=== PATIENT | female | born 1945 | race Caucasian/White ===

== ENCOUNTER 2023-03-25 08:57 | Day surgery (SDC) | payer MEDICARE, OTHER, SELFPAY ==
[2023-03-17 12:30] VITALS: BMI 36.3
[2023-03-25] VITALS (16 sets, daily range): BP systolic 94–150; BP diastolic 44–88; PULSE 44–91; RESP 12–19; TEMP 36.2–36.6; O2SAT 96–100; BMI 36.3
--- NOTE | 2023-03-25 06:00 | DI.RAD.S_ITS ---
PROCEDURE: XR KNEE RT 1TO2V INDICATIONS: tka TECHNIQUE: 2 view(s) of the knee acquired. COMPARISON: [facility] Sanjay Monsivais, ELLIE, XR KNEE ARTHRITIC SERIES BI, 01/18/2023, 15:01. FINDINGS: Bones: Patient is status post knee joint arthroplasty. Hardware components are in expected positions. Visualized bony structures are intact. Soft tissues: Overlying postoperative changes are noted. IMPRESSION: Expected appearance of the right total knee arthroplasty. Dictated by: Dima Gaspar M.D. on 03/25/2023 at 15:18 Approved by: Dima Gaspar M.D. on 03/25/2023 at 15:19
[2023-03-25] MEDS: LACTATED RINGERS 1,000 ML 42 ML IV (09:49)
[2023-03-25] MEDS: ACETAMINOPHEN 325 MG TABLET 975 MG PO (09:53)
[2023-03-25] MEDS: PREGABALIN 75 MG CAPSULE PO (09:54)
[2023-03-25] MEDS: CELECOXIB 200 MG CAPSULE PO (09:54)
--- NOTE | 2023-03-25 10:46 | PM.PREOP ---
Pre-operative Note Interval Note History & Physical reviewed/Exam performed by Physician: Yes Changes to H&P: No
[2023-03-25] MEDS: CEFAZOLIN 2 GM/100 ML PREMIX 100 ML IV ×2 (11:05→18:03)
[2023-03-25] MEDS: BUPIVACAINE LIPOSOME 266 MG/20 ML VIAL INJ (11:31)
[2023-03-25] MEDS: BUPIVACAINE 0.5% W/ EPI (PF) 30 ML VIAL INJ (11:33)
--- NOTE | 2023-03-25 11:44 | SUR.OPER ---
Supine on padded OR bed. Pillow under head, arms secured on padded armboards <90 degree abduction. Safety belt across torso. Non-operative leg secured with tape over blanket over lower leg. Operative leg secured in [place] positioner. Foam padded brace at thigh of operative leg.
--- NOTE | 2023-03-25 14:11 | PM.OP.1 ---
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 She is failed extensive conservative treatment with oral medications, physical therapy braces anti-inflammatories and injections. She is been indicated for total knee arthroplasty. The risks and benefits of the procedure have been discussed with the patient and given the opportunity to ask questions. The risks of surgery include but are not limited to infection, malunion, nonunion, persistence of pain, damage to nerves and blood vessels, posttraumatic arthritis, DVT, PE, cardiopulmonary complications and . The patient expressed a thorough understanding of the risks and benefits of surgery and has elected to proceed. Consent was signed. Surgeon: Mignon Mina Forest Ecologist: Summer Lafleur Anesthesia Type: General, Spinal and Local Operative Notes Findings: Tricompartmental varus knee arthritis full-thickness cartilage loss. Large posterior medial osteophytes Closure Type: primary Specimen(s): none sent Prosthetic devices, grafts, tissues, transplants, or devices: Kohli and nephew journey2 BCS Femur cobalt chromium size 6 Tibia size 5 right Poly 9 mm Patella 32 x 7.5 round Estimated Blood Loss (mL): 100 Blood products transfused: none Tourniquet time (min): 92 Procedure in detail: During the operation, the services of a physician director medical surgical were medically indicated and necessary to provide the exposure of the operative site for the surgical procedure and to maintain the limb in a proper position to carry out the operation safely and efficiently. Without a qualified it administrative assistant being present this would extended the operative procedure and made the procedure technically more difficult to perform. Patient was seen in the preoperative area where the patient and site of surgery were identified in the operative knee was marked informed consent confirmed. This was the right knee. Patient received the appropriate preoperative antibiotics this was 2 g of Ancef. And other preoperative medications and was taken to the operating room placed on operating table in the supine position. Spinal anesthetic were administered. The operative extremity was then prepped and draped in the standard sterile fashion with a nonsterile tourniquet high on the thigh. Patient was placed on the green foam bolsters. A lateral post was placed at the level of the proximal thigh /trochanter area as a lateral post. Formal time-out procedure was performed confirming the patient's side and site of surgery and administration of appropriate preoperative antibiotics and implants were in the room accounted for. All were in agreement. Patient received a preoperative dose of tranexamic acid and then a 2nd dose at tourniquet release Patient has significant limitations in flexion preoperatively range of motion 0 to 80? of flexion. There was noted large posteromedial osteophyte. Patient was prepped and draped in the standard sterile fashion and the foot was placed into the Wilder leg stewart. This was taken into high flexion and the incision was marked out over the anterior knee to the level of the medial tubercle tubercle. The Esmarch was then used for exsanguination and the tourniquet was inflated to 250 mmHg. Was made through the skin and subcutaneous tissue in high flexion this was then brought down into 30? of flexion for the medial parapatellar arthrotomy. A marker pen was used to giovanni the arthrotomy site for later repair. Joint fluid was evacuated. The anterior osteophytes and soft tissues were removed. Routine medial release was initially made along the medial proximal tibia with Bovie. The patella was 1st cut using the saw sized and prepped and then subluxed throughout the case and protected. The leg was then taken into extension and the patella was everted and the patella was cut to accommodate the patellar button. This was sized to a 32 mm button for a 7.5 mm thickness to recreate the original dimensions of the patella. Poly was removed and the protector replaced and the patella was subluxed and the knee was taken back up into flexion and attention was returned to the femur. Then the rotational landmarks of Whitesides line and the trans epicondylar axis were marked on the femur with electrocautery. Then the intramedullary guide for the femur was created. The distal femoral cut was made in 6? of valgus using the intramedullary guide with the cut setting on 0+ as the patient did not have a preoperative flexion contracture. The ACL and PCL released. The proximal tibia was then cut using the intramedullary guide, taking 9 mm off the less involved side this was the lateral plateau. The Levi wing was used to check the slope through the guide. The extension and flexion blocks were tried. This was good in extension with a 9 mm block but was quite tight in flexion. Two more mm were taken off the tibia. And this allowed the 9 mm block to fit well. femur was then sized and the rotation set using the posterior condyle referencing 3? of external rotation. This measured a size 6 additionally we shifted this 1 mm anterior for another mm opening along the posterior condyles due to the flexion tightness. Cut block was then placed and the anterior, posterior and chamfer cuts were then made. The posterior osteophytes and soft tissues were then removed. Of note there was a very large posterior medial osteophyte that was removed with the cut block cuts. Then in extension the posterior capsule was injected with a mixture of 40 mL of 0.25% Marcaine and 20 mL of Exparel care to avoid excessive injection posterior laterally. The remainder of this was saved for the capsule and subcutaneous tissue and placed during cement curing. Attention was then returned to the tibia and this was prepared with the rotation set by the extramedullary guide. Lined up with the tibial crest and the 2nd toe. The tibial trial was then pinned in place and the trial femoral components were placed. Then the intercondylar notch was cut through the femoral trial to create the box this was done with the distal than the proximal drill and then the box cut distally and then proximally. Next the insert was placed and the trial poly placed. This was stable in flexion and extension and there was a 0-120 degree range of motion, Limited by body habitus The tibia was then finished with the drill and flange cuts and then this was removed. All trials were removed. The wound and bone was irrigated with pulsatile lavage. This was then dried with a sponge. The components were verified and opened and the cement was mixed. Cement was applied to the components and then to the bone then the tibia was cemented in place 1st followed by the femur then the patella. Excess cement was removed. With care looking around the back of the knee. Remainder of the injection was injected around the capsule. trial poly was placed back in the leg was placed into extension for the patellar cementing. After this was cured approximately 15 minutes later and the dilute Betadine solution was placed for at least 3 minutes in the wound this was then irrigated out and the final poly was placed. This was a 9 mm poly. The tourniquet was released hemostasis was achieved. Final 1g of tranexamic acid was given IV at the time of tourniquet release. The capsule was closed with 1. Ethibond suture. Subcutaneous layer was closed with 3-0 Vicryl suture. Skin was closed with a running V lock suture Stratafix Monocryl type suture and Dermabond. An devaughn dressing was placed. An Edward wrap was applied. Anesthetic was terminated the patient was awoken from anesthesia and taken to recovery room in good condition. There no immediate complications from this procedure. The patient will be maintained on a standard total knee replacement protocol with weight-bearing as tolerated. Complications: none Post-operative Condition: stable Disposition: PACU Plan for aftercare: Weightbear as tolerated. Start vatvi-az-[id number] exercises immediately. Aspirin 81 mg b.i.d. for DVT prophylaxis. Follow-up in 2 weeks.
[2023-03-25] MEDS: KETOROLAC 30 MG/ML VIAL 15 MG IV ×2 (15:19→21:15)
[2023-03-25] MEDS: LACTATED RINGERS 1,000 ML 100 ML IV ×2 (15:19→21:28)
[2023-03-25] MEDS: ACETAMINOPHEN 325 MG TABLET 650 MG PO ×2 (15:20→21:15)
--- NOTE | 2023-03-25 15:30 | PT-IP ANOTE ---
Visited with patient and . Patient still numb in BLE's, able to minimally move LE's against gravity. Obtained history/prior level of function. Instructed patient to begin ankle pumps and heel slides every hour while awake as soon as numbness wears off, and to avoid placing pillow/blanket under R knee. Will plan to eval in AM. will be back at 11 AM for any caregiver training necessary.
--- NOTE | 2023-03-25 16:09 | PC.NURSE ---
Day shift: Pt admitted to floor from PACU at 1500. Pt reports no pain and spinal block still in effect - pt reports not being unable to wiggle toes and has numbness in BLE. Bradycardic down to 41. Notified MD Mina. She ordered 500mL LR bolus x 1. Pt denies nausea. Tolerated general diet for dinner. By 1700, pt's HR up to 57. Pt reports having feeling in BLEs and is now able to move both feet. Dressing on R knee is CDI. Will continue to monitor.
[2023-03-25] MEDS: LACTATED RINGERS 500 ML 1000 ML IV (16:16)
[2023-03-25] MEDS: OXYCODONE IR 5 MG TABLET PO (18:02)
[2023-03-25] MEDS: ATORVASTATIN 20 MG TABLET 40 MG PO (21:14)
[2023-03-25] MEDS: ASPIRIN EC 81 MG TABLET PO (21:14)
[2023-03-25] MEDS: OXYCODONE IR 10 MG TABLET PO (21:14)
[2023-03-25] MEDS: DOCUSATE 100 MG CAPSULE PO (21:15)
[2023-03-26] VITALS: BP 152/54; PULSE 56; RESP 18; TEMP 36.4; O2SAT 98
[2023-03-26] MEDS: OXYCODONE IR 10 MG TABLET PO ×3 (01:11→08:55)
[2023-03-26] MEDS: CEFAZOLIN 2 GM/100 ML PREMIX 100 ML IV (02:23)
[2023-03-26 03:06] VITALS: BP 137/56; PULSE 65; RESP 18; TEMP 36.1; O2SAT 99
[2023-03-26] MEDS: KETOROLAC 30 MG/ML VIAL 15 MG IV (06:18)
[2023-03-26 08:00] VITALS: BP 109/71; PULSE 73; RESP 18; TEMP 36.7; O2SAT 94
--- NOTE | 2023-03-26 08:44 | P.DS_ITS ---
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 She is failed extensive conservative treatment with oral medications, physical therapy braces anti- inflammatories and injections.? She is been indicated for total knee arthroplasty.? The risks and benefits of the procedure have been discussed with the patient and given the opportunity to ask questions.? The risks of surgery include but are not limited to infection, malunion, nonunion, persistence of pain, damage to nerves and blood vessels, posttraumatic arthritis, DVT, PE, cardiopulmonary complications and .? The patient expressed a thorough understanding of the risks and benefits of surgery and has elected to proceed.? Consent was signed. Surgeon: Mignon Mina Licensed Investment Sales Assistant: Summer Lafleur Anesthesia Type: General, Spinal and Local Operative Notes Findings: Tricompartmental varus knee arthritis full-thickness cartilage loss.? Large posterior medial osteophytes Closure Type: primary Specimen(s): none sent Prosthetic devices, grafts, tissues, transplants, or devices: Kohli and nephew journey2 BCS Femur cobalt chromium size 6 Tibia size 5 right Poly 9 mm Patella 32 x 7.5 round Estimated Blood Loss (mL): 100 Blood products transfused: none Tourniquet time (min): 92 Discharge Providers Provider Discharge Date: 03/26/23 Consults: 03/25/23 14:41 Consult to Discharge Planning Routine Comment: Consult to Occupational Therapy Evaluate & Treat Comment: Physician Instructions: Evaluate and treat Consult to Physical Therapy Evaluate & Treat Comment: Physician Instructions: postop TKA protocol Discharge provider: Summer Lafleur PA-C Summary Hospital Course Discharge Diagnosis: Right knee osteoarthritis, s/p right total knee arthroplasty Hospital Course: Ms Ríos's hospital course was remarkable for a 'rough night' after surgery. She had difficulty w/ pain control and difficulty sleeping for a variety of reasons. Despite this, on the morning of POD# 1, she wanted to go home. Her was scheduled for caregiver training w/ PT at 1100. She was eating and voiding without difficulty. Exam Vital Signs (past 8 hours): - 03/26/23 03:06 Temperature 97 F L Pulse Rate 65 Respiratory Rate 18 Blood Pressure 137/56 L Pulse Oximetry 99 Oxygen Flow Rate 0 Oxygen Delivery Method Room Air Oxygen Flow Rate 0 Narrative Exam Narrative: 5/5 strength in hip flexors, quadriceps, hamstrings, DF, PF, EHL on right. Sensation to light touch intact throughout RLE. Calf soft, compressible, nontender and without palpable cords or masses. BHUMI dressing functioning and with scant bloody drainage. PFSH Medical History (Updated 03/17/23 @ 13:11 by Tatum Wiley RN) History of CVA (cerebrovascular accident) (11/2022) HLD (hyperlipidemia) YUHAAVIATAM (hard of hearing) HTN (hypertension) Surgical History (Updated 03/17/23 @ 13:10 by Tatum Wiley RN) History of hysterectomy History of total left hip replacement (~2012) Hx of appendectomy Hx of tonsillectomy S/P removal of thyroid nodule (2019) Social History household members: spouse Smoking Status: Never smoker alcohol intake: current Discharge Assessment & Plan Assessment and Plan Assessment: Right knee osteoarthritis, s/p right total knee arthroplasty Plan of Treatment: Discharge home after PT, multimodal pain control, outpt PT, f/u in office in 2 weeks as scheduled. Discharge Plan Discharge Plan Patient Disposition: Home Discharge orders & Medications Discharge Orders: Discharge (Order); Ordered 03/26/23 Ordered By: Summer Lafleur Prescriptions: New oxycodone 5 mg tablet 5 mg PO Q4H PRN (Reason: pain) Qty: 40 0RF Rx Instructions: Postop exempt-may take 1-2 tabs every 4 hours as needed for pain ondansetron 4 mg tablet,disintegrating 4 mg PO Q8H PRN (Reason: nausea and vomiting) Qty: 5 1RF docusate sodium [Colace] 100 mg capsule 100 mg PO BID Qty: 30 0RF aspirin 81 mg tablet,delayed release (DR/EC) 81 mg PO BID Qty: 60 0RF Continued atorvastatin 40 mg Tablet 40 mg PO BEDTIME acetaminophen 500 mg Tablet 1,000 mg PO BID-TID PRN (Reason: Pain) lisinopril 10 mg Tablet 10 mg PO DAILY hydrochlorothiazide 25 mg Tablet 25 mg PO DAILY oxycodone 5 mg Tablet 5 mg PO QAM aspirin 81 mg Capsule 81 mg PO DAILY Follow up/Referrals: Mignon Mina MD [Physician] - Diet/Activity/Treatments Diet: Diet as Tolerated Activity: wbat Other treatments: Medications: -Aspirin 81mg twice daily x6 weeks to prevent blood clots. -OTC Tylenol 500 mg 1 tablet every 4 hours as needed for pain/fever. Max 6 tablets per day. (take scheduled every 4-6 hours for the first few days to week after schedule to help stay on top of your pain) -Ibuprofen 400 mg 1 tablet every 4 hours as needed for pain/inflammation. Max 2,400 mg per day. (take scheduled for the first few days-week after surgery to stay on top of your pain) -Oxycodone 5 mg take 1-2 tablets (5-10mg) every 4 hours as needed for moderate- severe pain (narcotic pain medication). (maximum dose for very severe pain would be 3 pills (15mg) every 3 hours) -Vistaril (hydroxyine) 25mg 1 tab every 4 hours as needed for spasms/pain/nausea. -ondansetron 4mg - 1 tab every 8 hours as needed for nausea -As needed medications: -Ducolax and /or MiraLax as needed for constipation from narcotic pain medications. -Pepcid AC as needed for stomach upset (usually from aspirin or ibuprofen). Dressing/Wound care: -Remove the Edward wrap 48 hours after surgery. -Keep bhumi dressing in place until postoperative follow-up office visit. The bhumi dressing the white dressing that is attached to a battery pack. This will work for 7 days. At that time the batteries will stop working and the unit will turn off. At that time, you can cut the hose off and the rest of the white bandage will remain just like any normal bandage. -Okay to shower. Keep wound out of direct water stream. No soaking or submerging until all the scabs fall off (approximately 4-6 weeks). -No lotions, ointments, or scar creams directly to the incision until the wound is healed (4-6 weeks), -Please call the office if dressing becomes wet, soiled, or saturated. Activities: -Weight-bearing as tolerated. Use front wheeled walker, and progress to cane when safe. -Continue with home exercises as directed by your physical therapist. (work on getting your leg. knee fully straight and bending knee as well- motion after knee replacement is very important) -should have outpatient Physical Therapy visits set up to start within 1 week after surgery -Elevate ?toes above the nose if you have significant swelling in your lower leg. (A wedge pillow is easiest.) -Ice your incision as needed for pain/inflammation/swelling. Protect your skin with a folded pillowcase. -Incentive Spirometer (breathing device from [facility]): 5-10xs every hour while awake for the first 1-2 weeks. Follow-up: -Follow-up with your surgeon or PA in the office in 10-14 days after surgery. -Follow-up with your surgeon 6 weeks postoperatively. Contact the office if you have any of the following: ? Painful swelling or numbness ? Unrelenting pain ? Fever (over 101?- it is normal to have a low grade fever for the first day or two following surgery) or chills ? Redness around the incisions ? Color changes ? Continuous bleeding or drainage from the incision (a small amount is expected) ? Excessive nausea or vomiting ? Difficulty breathing If you have an emergency that requires immediate attention such as shortness of breath or chest pain, call 911 or proceed to the nearest emergency room. [facility]: [phone] Pain Medications: It is the policy of [facility] that narcotic medications will only be refilled during office hours. Additionally, due to the alarming rate of narcotic pain medication abuse/dependence, it has become necessary for physician practices to closely manage patient use of prescription narcotic pain relievers, such as Vicodin ([place]), Percocet, and Oxycodone products. Narcotic pain management in the postoperative period may not exceed 6 weeks. If narcotic pain management is required beyond 90 days, then a referral to a Chronic Pain Specialist will be made. If a request for a medication prescription of refill has been made, the physician must review your chart prior to authorizing the request. Please be patient with office staff. If you call during patient hours, your call may not be returned until the end of the day. Skin/Wound/Dressing Care Report to your healthcare provider any signs of infection, such as:: chills, fever, night sweats, increased pain, unusual drainage and unusual redness Visit Report/Discharge Packet Instructions: DI for Knee Replacement Stand Alone Forms: Patient Portal/API, Surgery Discharge Discharge Data Attending Provider: Mignon Mina VTE Deep Vein Thrombosis/Pulmonary Embolism Present on Admission: No
[2023-03-26] MEDS: hydroCHLOROthiazide 25 MG TABLET PO (08:54)
[2023-03-26] MEDS: ACETAMINOPHEN 325 MG TABLET 650 MG PO (08:55)
[2023-03-26] MEDS: ASPIRIN EC 81 MG TABLET PO (08:56)
[2023-03-26] MEDS: polyethylene glycoL 3350 17 GM POWD.PACK PO (08:56)
[2023-03-26] MEDS: DOCUSATE 100 MG CAPSULE PO (08:56)
--- NOTE | 2023-03-26 10:05 | PT.IIE ---
Current Diagnoses Unilateral primary osteoarthritis, right knee (03/25/23) Surgery Performed Operation Date: 03/25/23 11:15 Actual Procedures p Total Knee Arthroplasty(Right) - Mignon Mina MD Surgical History (Last Updated 03/17/23 @ 13:10 by Tatum Wiley RN) History of hysterectomy History of total left hip replacement (~2012) Hx of appendectomy Hx of tonsillectomy S/P removal of thyroid nodule (2019) Medical History (Last Updated 03/17/23 @ 13:11 by Tatum Wiley RN) History of CVA (cerebrovascular accident) (11/2022) HLD (hyperlipidemia) [place] (hard of hearing) HTN (hypertension) Physical Therapy Inpatient Evaluation/Re-Eval M1 PT/OT-IP Prior Functional Status Start: 03/25/23 15:28 Freq: NEEDED Status: Active Protocol: Document 03/26/23 10:05 AB (Rec: 03/26/23 13:[email or web address] Medical Review Prior Functional Status Medical History Reviewed Yes Communication Able to make needs known Mobility and Gait pt stated that she is independent with all mobilities and ambulation without AD Social History Household Members spouse Living Arrangements Apartment/Condo Number of Floors (Floors) One Floor Number of Stairs To Enter/Railing? has an elevator to get to her floor no steps to enter Home Environment Standard Height Toilet,Tub/ Shower Doors,Elevator Home Equipment Front Wheel Walker,Raised Toilet Seat w/Armrests,Grab Bars In Shower M2 PT-IP Current Condition Start: 03/25/23 15:28 Freq: NEEDED Status: Active Protocol: Document 03/26/23 10:05 AB (Rec: 03/26/23 13:01 AB [email or web address]) Physical Therapy Current Condition Current Condition Evaluation Date 03/26/23 Treatment Diagnosis s/p R TKA; difficulty in walking Onset Date 03/25/23 M3 PT-IP Subjective Start: 03/25/23 15:28 Freq: NEEDED Status: Active Protocol: Document 03/26/23 10:05 AB (Rec: 03/26/23 13:01 AB [email or web address]) Subjective Physical Therapy Visit Type Type Initial Evaluation Visit Start Time 10:05 Visit Stop Time 11:00 Total Visit Minutes 55 Number of MACHINE STAMPER Visits 0 Physical Therapy Visit Comments Patient Comments agreeable to do PT Therapy Pain Assessment Pain When Pain Assessed At Rest Pain Present Pain Present Pain Reported Location Right Knee Intensity 7 Scale Used Numeric (0 - 10) Pain Management Techniques Distraction,Modification of Treatment,Re-positioning, Timing of Activity with Medications M4 PT-IP Mobility and Gait Start: 03/25/23 15:28 Freq: NEEDED Status: Active Protocol: Document 03/26/23 10:05 AB (Rec: 03/26/23 13:01 AB [id number]) PT-Bed Mobility Assessment Supine to Sit Supine to Sit Minimal Assistance,Maximum Assistance Sit to Supine Sit to Supine Standby Assistance PT-Transfer Assessment Sit to and From Stand Sit to and from Stand Minimal Assistance,Moderate Assistance,Maximum Assistance, 1 Person Assistance,Use of Upper Extremities Equipment Transfer Assistive Device Gait Belt,Front Wheeled Walker Orthotic/Prosthetic Devices or Brace: No Transfers Transfer Destination Chair Transfer Technique ambulated Transfer Ability Level of Assist Contact Guard Assistance,1 Person Assistance,Use of Upper Extremities Comments Mobility Comments pt supine in bed. completed heels slides prior to mobility . post-op folder provided and discussed contents. pt completed supine to sit max A and max cues. pt with posterior trunk LOB requiring max A for sitting balance on EOB with initial sitting but requiring min A after repositioning. pt with memory issues and with difficulty following directions. completed sit to stand mod A to max and max cues. pt sat back down requiring max A for controlled descent. pt tends to plop backwards. educated on sit<>stand techniques and completed sit to stand from EOB min to mod A and max cues. ambulated in room ~ 30 ft using FWW CGA and sat on EOB. demonstrated sit to supine SBA and supine to sit min A and cues. sit to stand from EOB min A and ambulated to the chair using FWW ~ 12 ft CGA. instructed to do sit<>stand from the chair and requiring mod A and max cues. Has no carryover from education provided for sit to stand. educated again and repeated sit to stand min A to mod A and max cues. pt continues to have uncotrolled descent requiring mod to max A for safety. pt agreed to sit on the chair. positioned on the chair. call light and table placed within reach. caregiver training set up at 1pm. Gait Assessment Gait Gait Assistance Required: Contact Guard Assist Distance (Feet) 30 Able to Maintain Weight Bearing Status Yes During Gait Assistive Devices Assistive Device Gait Belt,Front Wheeled Walker Orthotic/Prosthetic Devices or Brace: No Gait Deviations General Gait Pattern Antalgic,Decreased Stride Length,Decreased Feet Clearance Factors Limiting Gait Function Factors Limiting Gait Function Decreased Activity Tolerance, Decreased Strength,Difficulty Following Directions,Limited Range of Motion,Pain,Poor Balance,Poor Safety Awareness PT-Balance Assessment Sitting Balance and Reactions Static Sitting Balance Ability Fair Dynamic Sitting Balance Ability Poor Standing Balance and Reactions Static Standing Balance Ability Fair Dynamic Standing Balance Ability Poor Device Used FWW M5 PT-IP Objective Assessments Start: 03/25/23 15:28 Freq: NEEDED Status: Active Protocol: Document 03/26/23 10:05 AB (Rec: 03/26/23 13:01 AB [email or web address]) Orientation Orientation/Cognition Level of Alertness Alert Orientation Name,Place,Situation Language Function Ability Hard of Hearing Safety Awareness Decreased Safety Awareness Memory Description Short Term Impaired Gross Range of Motion Lower Extremity ROM Assessment Right Impaired Impairments R knee flexion: ~ 50 deg R knee flexion: ~ 25 deg less to 0 Strength Lower Extremity Strength Assessment Left Impaired Hip 4-/5 Knee 4-/5 Muscle Tone Muscle Tone WNL Yes M6 PT-IP Treatment Start: 03/25/23 15:28 Freq: NEEDED Status: Active Protocol: Document 03/26/23 10:05 AB (Rec: 03/26/23 13:01 AB [email or web address]) Physical Therapy Treatment Exercises Exercises Heel Slides Education Education Provided Precautions,Weight Bearing Status,Post-Op Packet,Safety M7 PT-IP Assessment and Plan Start: 03/25/23 15:28 Freq: NEEDED Status: Active Protocol: Document 03/26/23 10:05 AB (Rec: 03/26/23 13:01 [email or web address]) PT Summary Assessment and Plan Potential Rehabilitation Potential Fair Status of Condition at Evaluation Evolving Summary Impairments Pain,ROM,Strength,Balance, Coordination,Sensation,Tone, Cognition,Bed Mobility, Transfers,Gait,Activity Tolerance Assessment Summary pt s/p R TKA POD 1. pt requiring min to max A for sit <>stand and max cues needed for safety. pt presents with memory issues affecting carryover of techniques and safety. pt able to ambulate CGA using FWW CGA. Caregiver training set up for this afternoon at 1pm. will continue to assess progress. Goals Bed Mobility Goal Independent Transfer Goal Independent,Front Wheeled Walker Gait Goal Independent,Front Wheel Walker Gait Distance 200 Days to Meet Goals 5 Frequency of Treatment Frequency Of Treatment Twice a Day Treatment Plan Physical Therapy Treatment Plan Bed Mobility Training,Transfer Training,Gait Training, Therapeutic Exercise,Balance Retraining,Post Op Education, Discharge Planning,Hot or Cold Pack,Neuromuscular Re-ed, Coordination Retraining,Manual Therapy Other Recommendations and Next Treatment caregiver training 03/26/23 @ [facility] 1pm Weight Bearing Status Weight Bearing Status Weight Bear as Tolerated Allowed Weight Bearing Amount (enter % RLE WBAT or #) (%) Recommendations To Nursing Amount of Assist Needed 1 Person Assist Discharge Recommendations PT Discharge Recommendations Home with 18/04 Assist Available,Outpatient PT Transportation Needs at Discharge Private Vehicle
--- NOTE | 2023-03-26 11:33 | CM.DANOTE ---
Initial DCP Assessment Note Pt is a 78 yo female, resident of [place], now POD#1 from Rt knee surgery PCP: Dr Garcia, [facility] Payer: [facility] Reviewed chart, pt discussed in multidisciplinary rounds this morning. PT attempted to see patient yesterday and she was still numb in her BLE. Therapy seeing this morning Met w/patient briefly. Patient moving slowly but eager to return home. Patient has planned to return home w/heidy spouse to assist, outpatient follow up No barriers identified at this time to patient's safe discharge home w/family to assist, however, still awaiting input from PT [place] this morning CM team following closely in case any DC needs or concern arise SERGIO Schafer Discharge Planning/Care Management CM Discharge Assessment Start: 03/26/23 11:27 Freq: Status: Active Protocol: Document 03/26/23 11:27 RODNEY (Rec: 03/26/23 11:31 RODNEY [id number]) Discharge Planning Assessment Assigned Wood Scaler SERGIO Rodriguez DPOA/Assigned Designee Name Srinath Ríos, spouse Contact Information [phone] Advance Directives? Yes Advance Directives on File No History Provided By Patient,Medical Record Prior Living Arrangements Apartment/Condo Household Members spouse Type of transporation used prior to Drives own vehicle admit Independent with ADL's Yes Is patient alert and oriented? Yes Barriers to Discharge No Discharge Plan Home Transportation Arrangement Spouse Referrals Initiated None needed
[2023-03-26 12:00] VITALS: BP 134/59; PULSE 64; RESP 18; TEMP 36.1; O2SAT 98
[2023-03-26] MEDS: OXYCODONE IR 5 MG TABLET PO (12:42)
--- NOTE | 2023-03-26 13:00 | PT.IPTN ---
Current Diagnoses Unilateral primary osteoarthritis, right knee (03/25/23) Surgery Performed Operation Date: 03/25/23 11:15 Actual Procedures p Total Knee Arthroplasty(Right) - Mignon Mina MD Physical Therapy Treatment Note M2 PT-IP Current Condition Start: 03/25/23 15:28 Freq: NEEDED Status: Active Protocol: Document 03/26/23 10:05 AB (Rec: 03/26/23 13:01 AB [id number]) Physical Therapy Current Condition Current Condition Evaluation Date 03/26/23 Treatment Diagnosis s/p R TKA; difficulty in walking Onset Date 03/25/23 M3 PT-IP Subjective Start: 03/25/23 15:28 Freq: NEEDED Status: Active Protocol: Document 03/26/23 13:00 AB (Rec: 03/26/23 14:19 AB [email or web address]) Subjective Physical Therapy Visit Type Type Treatment Note Visit Start Time 13:00 Visit Stop Time 13:45 Total Visit Minutes 45 Number of DOBBY LOOM WEAVER Visits 0 Physical Therapy Visit Comments Patient Comments agreeable to do PT Therapy Pain Assessment Pain When Pain Assessed At Rest Pain Present Pain Present Pain Reported Location Right Knee Intensity 8 Scale Used Numeric (0 - 10) Pain Management Techniques Distraction,Modification of Treatment,Re-positioning, Timing of Activity with Medications M4 PT-IP Mobility and Gait Start: 03/25/23 15:28 Freq: NEEDED Status: Active Protocol: Document 03/26/23 13:00 AB (Rec: 03/26/23 14:19 AB [email or web address]) PT-Bed Mobility Assessment Supine to Sit Supine to Sit Maximum Assistance Sit to Supine Sit to Supine Standby Assistance PT-Transfer Assessment Sit to and From Stand Sit to and from Stand Moderate Assistance,1 Person Assistance,Use of Upper Extremities Equipment Transfer Assistive Device Gait Belt,Front Wheeled Walker Orthotic/Prosthetic Devices or Brace: No Transfers Transfer Destination Bed,Chair Transfer Technique ambulated Transfer Ability Level of Assist Moderate Assistance,1 Person Assistance,Use of Upper Extremities Comments Mobility Comments pt supine in bed. spouse in room for caregiver training. educated spouse on how to assist pt with bed mobility. pt completed supine to sit max A and max cues with increase posterior trunk lean. educated spouse on how to use safety belt and how to assist pt. pt attempted to put safety belt on pt x 3 with initial max cues on first 2 attempts and able to complete without cues on last attempt. spouse assisted pt with sit to stand from EOB. educated on how to assist and cue pt when needed. pt repeated sit< >stand with spouse assisting and cueing. spouse assisted pt with ambulation in room using FWW and sat on the chair . pt completed sit <>stand from the chair with spouse assisting with occasional reminders to spouse on cueing pt. pt ambulated to EOB using FWW with spouse assisting. pt completed sit<>supine with spouse assisting. pt ambulated back to chair using FWW with spouse assisting. positioned pt on the chair. call light and table placed within reach. pt and spouse without further concerns. pt has a transport w/c to use at home. Gait Assessment Gait Gait Assistance Required: Contact Guard Assist,Minimum Assistance Distance (Feet) 15 Able to Maintain Weight Bearing Status Yes During Gait Assistive Devices Assistive Device Gait Belt,Front Wheeled Walker Orthotic/Prosthetic Devices or Brace: No Gait Deviations General Gait Pattern Antalgic,Decreased Stride Length,Decreased Feet Clearance,Step-to Gait Factors Limiting Gait Function Factors Limiting Gait Function Decreased Activity Tolerance, Decreased Strength,Difficulty Following Directions,Limited Range of Motion,Pain,Poor Balance,Poor Safety Awareness M5 PT-IP Objective Assessments Start: 03/25/23 15:28 Freq: NEEDED Status: Active Protocol: Document 03/26/23 10:05 AB (Rec: 03/26/23 13:01 AB [email or web address]) Orientation Orientation/Cognition Level of Alertness Alert Orientation Name,Place,Situation Language Function Ability Hard of Hearing Safety Awareness Decreased Safety Awareness Memory Description Short Term Impaired Gross Range of Motion Lower Extremity ROM Assessment Right Impaired Impairments R knee flexion: ~ 50 deg R knee flexion: ~ 25 deg less to 0 Strength Lower Extremity Strength Assessment Left Impaired Hip 4-/5 Knee 4-/5 Muscle Tone Muscle Tone WNL Yes M6 PT-IP Treatment Start: 03/25/23 15:28 Freq: NEEDED Status: Active Protocol: Document 03/26/23 13:00 AB (Rec: 03/26/23 14:19 AB [email or web address]) Physical Therapy Treatment Education Education Provided Safety M7 PT-IP Assessment and Plan Start: 03/25/23 15:28 Freq: NEEDED Status: Active Protocol: Document 03/26/23 13:00 AB (Rec: 03/26/23 14:19 AB [email or web address]) PT Summary Assessment and Plan Potential Rehabilitation Potential Fair Summary Impairments Pain,ROM,Strength,Balance, Coordination,Sensation,Tone, Cognition,Bed Mobility, Transfers,Gait,Activity Tolerance Progress Towards Goals Slow Progress - Other Assessment Summary caregiver training conducted and spouse able to assist pt. pt plans to go home today and is set up for outpt PT. pt may go home when medically stable. Goals Bed Mobility Goal Independent Transfer Goal Independent,Front Wheeled Walker Gait Goal Independent,Front Wheel Walker Gait Distance 200 Days to Meet Goals 5 Frequency of Treatment Frequency Of Treatment Twice a Day Treatment Plan Physical Therapy Treatment Plan Bed Mobility Training,Transfer Training,Gait Training, Therapeutic Exercise,Balance Retraining,Post Op Education, Discharge Planning,Hot or Cold Pack,Neuromuscular Re-ed, Coordination Retraining,Manual Therapy Weight Bearing Status Weight Bearing Status Weight Bear as Tolerated Allowed Weight Bearing Amount (enter % RLE WBAT or #) (%) Recommendations To Nursing Amount of Assist Needed 1 Person Assist Discharge Recommendations PT Discharge Recommendations Home with 18/04 Assist Available,Outpatient PT Transportation Needs at Discharge Private Vehicle
[2023-03-26 13:40] VITALS: BP 134/59; PULSE 64; RESP 18; TEMP 36.1; O2SAT 99
--- NOTE | 2023-03-26 15:12 | PC.NURSE ---
Day shift: Discharge instructions gone over with patient and patient's spouse. All questions answered and patient stated understanding. Pain adequately managed with 5 mg oxycodone. Edward wrap + devaughn on R knee remain in place and are CDI. PIV d/c'ed prior to discharge. Pt escorted via wheelchair to exit with [employer] Jeannie.
== END 2023-03-26 14:00 | disposition home or self-care (01) ==
LOC: OR 09:01 → AC 09:02
PROVIDERS: Referring Provider Orthopaedic Surgery Foot and Ankle Surgery; Visit Provider Orthopaedic Surgery Foot and Ankle Surgery
PROC: 0SRC0JZ Replacement of Right Knee Joint with Synthetic Substitute, Open Approach (ICD-10-PCS; CPT 27447; principal; 2023-03-25 11:15)
DX: M17.11 Unilateral primary osteoarthritis, right knee (principal)
CPT/HCPCS: 27447; 73560; 97162; 97530; C1776; C9290; J0690; J1885; J2405; J2704; J3010

== ENCOUNTER 2024-01-04 09:28 | Day surgery (SDC) | payer MEDICARE, OTHER, SELFPAY ==
[2023-03-25 14:44] VITALS: BMI 36.3
[2023-12-21 13:47] VITALS: BMI 35.5
[2024-01-04] VITALS (15 sets, daily range): BP systolic 109–179; BP diastolic 47–91; PULSE 55–106; RESP 12–17; TEMP 36.2–36.8; O2SAT 59–99; BMI 35.5
--- NOTE | 2024-01-04 06:00 | DI.RAD.S_ITS ---
PROCEDURE: XR KNEE LT 1TO2V INDICATIONS: postop TKA TECHNIQUE: 2 view(s) of the knee acquired. COMPARISON: [facility], CR, XR KNEE RT 1TO2V, 03/25/2023, 13:51. [facility], CR, XR KNEE 4+ VIEWS LEFT, 11/25/2023, 10:22. FINDINGS: Bones: Patient is status post knee joint arthroplasty. Hardware components are in expected positions. Visualized bony structures are intact. Soft tissues: Overlying postoperative changes are noted. IMPRESSION: Expected post-operative appearance of a knee arthroplasty. Dictated by: Andry Tony M.D. on 01/04/2024 at 15:48 Approved by: Andry Tony M.D. on 01/04/2024 at 15:48
[2024-01-04] MEDS: CELECOXIB 200 MG CAPSULE PO (10:11)
[2024-01-04] MEDS: ACETAMINOPHEN 325 MG TABLET 975 MG PO (10:11)
[2024-01-04] MEDS: PREGABALIN 75 MG CAPSULE PO (10:12)
[2024-01-04] MEDS: LACTATED RINGERS 1,000 ML 42 ML IV (10:30)
--- NOTE | 2024-01-04 10:47 | PM.PREOP ---
Pre-operative Note Interval Note History & Physical reviewed/Exam performed by Physician: Yes Changes to H&P: No
--- NOTE | 2024-01-04 10:47 | PM.OP.1 ---
Operative Date/Time/Diagnoses Date of procedure: 01/04/24 Time of procedure: 11:30 Pre-op diagnosis: Left knee arthritis Post-op diagnosis: same Procedure & Clinicians Procedure: Total knee replacement left CPT code 50147 Robotic assisted surgery CPT code S 2900 Imageless guidance computer navigation CPT code 68711 Same procedure as scheduled: Yes Indications: The patient has significant pain associated with osteoarthritis of the left knee. It is associated with morning stiffness. Pain interferes with daily normal function including ambulation standing and any activities that are weight-bearing. It interferes with sleep. There is crepitation with range of motion. There is marked joint line tenderness. X-rays show significant levels of osteoarthritis, varus. Thorough attempted previous conservative treatment have been rendered. The patient has failed exercise program, medications and previous injections. Patient is indicated for total knee arthroplasty. The risks and benefits of the procedure have been discussed with the patient and given the opportunity to ask questions. The risks of surgery include but are not limited to infection, malunion, nonunion, persistence of pain, damage to nerves and blood vessels, posttraumatic arthritis, DVT, PE, cardiopulmonary complications and . The patient expressed a thorough understanding of the risks and benefits of surgery and has elected to proceed. Consent was signed. During the operation, the services of a physician surgical aide were medically indicated and necessary to provide the exposure of the operative site for the surgical procedure and to maintain the limb in a proper position to carry out the operation safely and efficiently. Without a qualified contact lens assistant being present this would extended the operative procedure and made the procedure technically more difficult to perform. Surgeon: Mignon Mina Identification Printing Machine Setter: Paulo Guido Anesthesia Type: General, Spinal, Peripheral nerve block and Local Operative Notes Findings: Tricompartmental varus knee arthritis left knee large osteophytes, full-thickness cartilage loss all 3 compartments. Degenerative meniscal tearing. Closure Type: primary Specimen(s): none sent Prosthetic devices, grafts, tissues, transplants, or devices: Kohli and nephew journey 2 BCS Femur cobalt chromium size 7 Left tibia left size 5 Polyethylene 9 mm BCS Kalli 2 patella 32 by 7.5 round Estimated Blood Loss (mL): 50 Blood products transfused: none Tourniquet time (min): 105 Procedure in detail: Patient was seen in the preoperative area where the patient and site of surgery were identified in the operative knee was marked informed consent confirmed. This was the left knee. Patient received the appropriate preoperative antibiotics this was 2 g of Ancef. And other preoperative medications and was taken to the operating room placed on operating table in the supine position. Spinal anesthetic were administered. The operative extremity was then prepped and draped in the standard sterile fashion with a nonsterile tourniquet high on the thigh. Patient was placed on the green foam bolsters. A lateral post was placed at the level of the proximal thigh /trochanter area as a lateral post. Formal time-out procedure was performed confirming the patient's side and site of surgery and administration of appropriate preoperative antibiotics and implants were in the room accounted for. All were in agreement. Patient received a preoperative dose of tranexamic acid and then a 2nd dose at tourniquet release Patient was prepped and draped in the standard sterile fashion and the foot was placed into the leg stewart. This was taken into high flexion and the incision was marked out over the anterior knee to the level of the medial tubercle tubercle. The Esmarch was then used for exsanguination and the tourniquet was inflated to 250 mmHg. Incision Was made through the skin and subcutaneous tissue in high flexion this was then brought down into 30? of flexion for the medial parapatellar arthrotomy. A marker pen was used to giovanni the arthrotomy site for later repair. Joint fluid was evacuated. The anterior osteophytes and soft tissues were removed. Routine medial release was initially made along the medial proximal tibia with Bovie. The patella was 1st cut using the saw sized and prepped and then subluxed throughout the case and protected. The leg was then taken into extension and the patella was everted and the patella was cut to accommodate the patellar button. This was sized to a 32 mm button for a 7.5 mm thickness to recreate the original dimensions of the patella. Poly was removed and the protector replaced and the patella was subluxed and the knee was taken back up into flexion and attention was returned to the femur. Then the rotational landmarks of [place] line and the trans epicondylar axis were marked on the femur with electrocautery. ACL and PCL were released. Bony spurs were removed. Then the Cori robotic pins were placed into the femur and tibia and the race set up. Landmarks were established and the robotic planning was commenced. Plan was developed and improved and adjusted as necessary to create a balanced knee. Initial alignment was 3? of varus. Plan was correct to 0-1 degree of varus. The pin was taken an improved. 4? of external rotation was put into the distal femur. And the cuts were adjusted to balance 1-2 mm in flexion and extension. Provisional implant sizes were size 7 femur and 5 tibia balancing was provisionally done with a 10 mm poly. Once the Plan was satisfactory, the bur was used to remove the distal femur, then the 5 in 1 cutting block was applied complete the femur cuts. Attention was then turned to the tibia and the tibial resection was made in accordance with the robotic planning. Planer was placed again on the tibia to double check the cut and these were all within 1 degree or 1 mm. The trials were placed. And the femoral notch was cut a standard fashion using Reamer then slap hammer. The knee was trialed and the checked. Knee was balanced in flexion extension. Range of motion 0-135 degrees was obtained. The achieve alignment with the trials stated 1-2 degree of valgus. This was with the trial using a 9 mm poly. The knee was clinically stable at extension 30 and 90? of flexion.The rotation femoral trial was marked Bovie on the bone and checked with a long arun. The tibia was then finished with a drill and flange cut and then The trial implants were removed. Then in extension the posterior capsule was injected with a mixture of 40 mL of 0.25% Marcaine and 20 mL of Exparel care to avoid excessive injection posterior laterally. The remainder of this was saved for the capsule and subcutaneous tissue and placed during cement curing. The wound and bone was irrigated with pulsatile lavage. This was then dried with a sponge. The components were verified and opened and the cement was mixed. Cement was applied to the components and then to the bone then the tibia was cemented in place 1st followed by the femur then the patella. Excess cement was removed. With care looking around the back of the knee. Remainder of the injection was injected around the capsule. trial poly was placed back in the leg was placed into extension for the patellar cementing. After this was cured approximately 15 minutes later and the dilute Betadine solution was placed for at least 3 minutes in the wound this was then irrigated out and the final poly was placed. This was a 9 mm poly. The final alignment checked using the robotic trackers was made with a 0 degree, neutral alignment with the final cemented implants. The tourniquet was released hemostasis was achieved. Final 1g of tranexamic acid was given IV at the time of tourniquet release. The capsule was closed with 1. Ethibond suture. Followed by a running Quill stitch. Subcutaneous layer was closed with 3-0 Vicryl suture. Skin was closed with a running V lock suture Stratafix Monocryl type suture and Dermabond. An Aquacel dressing was placed . An Edward wrap was applied. Anesthetic was terminated the patient was woken from anesthesia and taken to recovery room in good condition. There no immediate complications from this procedure. The patient will be maintained on a standard total knee replacement protocol with weight-bearing as tolerated. Complications: none Post-operative Condition: stable Disposition: PACU Plan for aftercare: Routine total knee postoperative care. Weightbear as tolerated. Range of motion immediately. Discharge when medically stable. Aspirin 81 mg b.i.d. for 6 weeks for DVT prophylaxis. We will start outpatient physical therapy within 1 week. Follow up in 10-14 days if physician contact lens assistant. Follow up in 6 weeks with surgeon.
--- NOTE | 2024-01-04 10:59 | SUR.OPER ---
Supine on padded OR bed. Pillow under head, arms secured on padded armboards <90 degree abduction. Safety belt across torso. Non-operative leg secured with tape over blanket over lower leg. Operative leg secured in DeMayo/Wilton/Nathe positioner. Foam padded brace at thigh of operative leg.
[2024-01-04] MEDS: CEFAZOLIN 2 GM/100 ML PREMIX 100 ML IV ×2 (11:22→18:39)
--- NOTE | 2024-01-04 11:25 | SUR.PREOP ---
Block start time 1103. Monitoring initiated and maintained throughout procedure. Patient remained stable throughout procedure, no adverse reactions noted.
[2024-01-04] MEDS: BUPIVACAINE 0.25% (PF) 60 ML, EPINEPHrine 0.3 MG INJ (11:51)
[2024-01-04] MEDS: TRANEXAMIC ACID 1,000 MG VIAL 1000 MG INJ ×2 (11:51→13:18)
[2024-01-04] MEDS: BUPIVACAINE LIPOSOME 266 MG/20 ML VIAL INJ (11:52)
[2024-01-04] MEDS: CARBOXYMETHYLCELLULOSE DROPS 1 DROPS EYE-LEFT (14:45)
--- NOTE | 2024-01-04 15:10 | SUR.PHASEI ---
Eye Pain Patient had eye pain to left eye. Eye tearing on visual inspection. Dr. Rocha notified and inspected patient's eye. Refresh eye drops ordered and given as ordered. Patient verbalizes some relief but eyes still hurt and water. Patient noted that the pain was worse upon arrival to her brighter lit room in acute care.
[2024-01-04] MEDS: ACETAMINOPHEN 325 MG TABLET 650 MG PO ×2 (16:07→20:30)
[2024-01-04] MEDS: IBUPROFEN 400 MG TABLET PO ×2 (16:07→18:30)
[2024-01-04] MEDS: LACTATED RINGERS 1,000 ML 100 ML IV (16:07)
[2024-01-04] MEDS: OXYCODONE IR 5 MG TABLET PO (18:30)
[2024-01-04] MEDS: ATORVASTATIN 20 MG TABLET 40 MG PO (20:31)
[2024-01-04] MEDS: DOCUSATE 100 MG CAPSULE PO (20:31)
[2024-01-04] MEDS: ASPIRIN EC 81 MG TABLET PO (20:31)
[2024-01-05] MEDS: LACTATED RINGERS 1,000 ML 100 ML IV (02:31)
[2024-01-05] MEDS: CEFAZOLIN 2 GM/100 ML PREMIX 100 ML IV (02:32)
[2024-01-05] MEDS: OXYCODONE IR 5 MG TABLET PO ×4 (02:36→13:16)
[2024-01-05] MEDS: ACETAMINOPHEN 325 MG TABLET 650 MG PO (02:36)
[2024-01-05] MEDS: IBUPROFEN 400 MG TABLET PO ×2 (02:36)
[2024-01-05 05:59] LABS: Hematocrit 37.4 % (36-46); Hemoglobin 12.5 g/dL (12.0-16.0)
--- NOTE | 2024-01-05 07:40 | PM.PNPO.1 ---
Subjective Subjective Date Patient Seen: 01/05/24 Time Patient Seen: 07:41 Interval history: Patient is having moderate to severe pain. Patient denies fever chills. No nausea or vomiting. Her 's home to assist her. She states her knee is very stiff and surprised that this surgery has been so debilitating. Exam Vital Signs (past 8 hours): Oxygen Delivery Method Room Air Oxygen Flow Rate 0 Narrative Exam Narrative: 78-year-old female resting comfortably in bed in no apparent distress. Left knee dressing is clean, dry and intact. Motor functions intact distal left lower extremity. Sensation grossly intact to light touch left lower extremity. Left leg is warm and dry. Const General: cooperative and comfortable Nutritional Appearance: average body habitus Orientation: alert Resp Effort & Inspection: normal respiratory effort and able to speak in complete sentences Objective Labs 01/05/24 05:54 Labs: Laboratory Results - last 24 hr 01/05/24 05:54 Hgb 12.5 Hct 37.4 PFSH Medical History (Updated 12/21/23 @ 14:06 by Tatum Wiley RN) HLD (hyperlipidemia) HTN (hypertension) [place] (hard of hearing) History of CVA (cerebrovascular accident) (11/2022) Surgical History (Updated 12/21/23 @ 13:56 by Tatum Wiley RN) History of total right knee replacement (03/25/23) History of total left hip replacement (~2012) S/P removal of thyroid nodule (2019) History of hysterectomy Hx of tonsillectomy Hx of appendectomy Social History household members: spouse Smoking Status: Never smoker alcohol intake: current Assessment & Plan Post-op Postoperative Procedures: Procedures Operation Date: 01/04/24 10:45 Actual Procedure Side Surgeon p Total Knee Arthroplasty - Robot Left Mignon Mina MD Postoperative day: 1 Postoperative status: doing well and marginal pain control Postoperative plan: routine post-op care Postoperative plan narrative: Multimodal pain management Weight-bearing as tolerated, routine postop protocol total knee arthroplasty Aspirin 81 mg b.i.d. for 6 weeks Disposition likely home today or tomorrow Quality VTE Deep Vein Thrombosis/Pulmonary Embolism Present on Admission: No
[2024-01-05 08:00] VITALS: BP 168/86; PULSE 61; RESP 16; TEMP 36.3; O2SAT 99
[2024-01-05] MEDS: ASPIRIN EC 81 MG TABLET PO (08:47)
[2024-01-05 08:48] VITALS: BP 149/79
[2024-01-05] MEDS: lisinopriL 10 MG TABLET PO (08:48)
[2024-01-05] MEDS: DOCUSATE 100 MG CAPSULE PO (08:49)
[2024-01-05] MEDS: hydroCHLOROthiazide 25 MG TABLET PO (08:49)
--- NOTE | 2024-01-05 10:17 | PT.IIE ---
Current Diagnoses Unilateral primary osteoarthritis, left knee (01/04/24) Surgery Performed Operation Date: 01/04/24 10:45 Actual Procedures p Total Knee Arthroplasty - Robot(Left) - Mignon Mina MD Surgical History (Last Updated 12/21/23 @ 13:56 by Tatum Wiley, RN) History of hysterectomy History of total left hip replacement (~2012) History of total right knee replacement (03/25/23) Hx of appendectomy Hx of tonsillectomy S/P removal of thyroid nodule (2019) Medical History (Last Updated 12/21/23 @ 14:06 by Tatum Wiley, RN) History of CVA (cerebrovascular accident) (11/2022) HLD (hyperlipidemia) [place] (hard of [place]) HTN (hypertension) Physical Therapy Inpatient Evaluation/Re-Eval M1 PT/OT-IP Prior Functional Status Start: 01/05/24 09:25 Freq: NEEDED Status: Active Protocol: Document 01/05/24 09:25 MB (Rec: 01/05/24 10:16 MB [id number]) Medical Review Prior Functional Status Medical History Reviewed Yes Diet/Fluid Consistency Regular Communication Unsure basline communication, pt appears to have some confusion on evaluation and trouble following simple commands, she has hearing aides. OT to further assess cognition Mobility and Gait Pt reports no AD or cane use at baseline Activities of Daily Living and IADL's Pt states that she did not drive d/t LE issues THERAPY SITE COORDINATOR and that her did the driving Social History Household Members spouse Living Arrangements Apartment/Condo Number of Floors (Floors) One Floor Number of Stairs To Enter/Railing? Pt states there are no steps to enter Home Environment High Toilet,Tub/Shower Home Equipment Front Wheel Walker,Straight Cane,Raised Toilet Seat w/ Armrests,Grab Bars In Shower M2 PT-IP Current Condition Start: 01/05/24 09:25 Freq: NEEDED Status: Active Protocol: Document 01/05/24 09:25 MB (Rec: 01/05/24 10:16 MB [id number]) Physical Therapy Current Condition Current Condition Evaluation Date 01/05/24 Treatment Diagnosis L TKR M3 PT-IP Subjective Start: 01/05/24 09:25 Freq: NEEDED Status: Active Protocol: Document 01/05/24 09:25 MB (Rec: 01/05/24 10:16 MB [id number]) Subjective Physical Therapy Visit Type Type Initial Evaluation Visit Start Time 09:25 Visit Stop Time 10:00 Number of THERAPY SITE COORDINATOR Visits 0 Physical Therapy Visit Comments Patient Comments Pt is pleasant and smiling in bed and then she communicates concern that her left knee is not doing the same as the right one did after surgery and that she cannot move it and she is concerned about going home with . Pt is anxious about this throughout treatment and con't to make verbalizations about this. Therapy Pain Assessment Pain When Pain Assessed During Mobility Pain Present Pain Present Pain Reported Location Left knee Intensity 8 Scale Used Numeric (0 - 10) Description Acute Pain Behaviors Facial Grimacing,Guarding Pain Management Techniques Distraction,Elevation, Modification of Treatment,Re- positioning,Timing of Activity with Medications M4 PT-IP Mobility and Gait Start: 01/05/24 09:25 Freq: NEEDED Status: Active Protocol: Document 01/05/24 09:25 MB (Rec: 01/05/24 10:16 MB [id number]) PT-Bed Mobility Assessment Supine to Sit Supine to Sit Minimal Assistance,1 Person Assistance,Head of Bed Elevated,Bedrails Scooting Scooting to Edge of Bed Minimal Assistance PT-Transfer Assessment Sit to and From Stand Sit to and from Stand Moderate Assistance,Maximum Assistance,1 Person Assistance ,Use of Upper Extremities Equipment Transfer Assistive Device Gait Belt,Front Wheeled Walker Orthotic/Prosthetic Devices or Brace: No Transfers Transfer Destination Toilet Transfer Technique Ambulation Transfer Ability Level of Assist Moderate Assistance,Maximum Assistance,1 Person Assistance ,Use of Upper Extremities Comments Mobility Comments Pt is very anxious about moving left leg and PT places gait belt around her left foot to allow her to help scoot her left leg to the left out to EOB. HOB is up upon PT arrival and so she moves to EOB for upright hook lying position. Pt requires encouragement to move and then she is able to do most of the work. BP and HR in RUE are high. In hook lying sittin/83, 69 and sitting EOB: 209/74, 77. Mod A to stand up from the bed and max A to stand up from the toilet in BR , cues for hand placement, talking pt through each step of mobility. Gait Assessment Gait Gait Assistance Required: Minimum Assistance,Moderate Assistance Distance (Feet) 25 Able to Maintain Weight Bearing Status Yes During Gait Assistive Devices Assistive Device Gait Belt,Front Wheeled Walker Orthotic/Prosthetic Devices or Brace: No Gait Deviations General Gait Pattern Antalgic,Decreased Stride Length,Decreased Feet Clearance,Flexed Trunk,Step-to Gait,Wide Based Gait Factors Limiting Gait Function Factors Limiting Gait Function Decreased Activity Tolerance, Decreased Strength,Pain,Poor Balance,Poor Safety Awareness Comments Gait Comments Pt gait trains 25'x1 and 10'x1 with RW and usually min A but increased mod A initially after getting up from commode. Pt requires cues for step-to gait and she has decreased left ankle DF with gait and step-length and foot clearance , flexed posture at hips. PT-Balance Assessment Sitting Balance and Reactions Static Sitting Balance Ability Good Dynamic Sitting Balance Ability Fair Standing Balance and Reactions Static Standing Balance Ability Fair Dynamic Standing Balance Ability Poor Device Used RW M5 PT-IP Objective Assessments Start: 01/05/24 09:25 Freq: NEEDED Status: Active Protocol: Document 01/05/24 09:25 MB (Rec: 01/05/24 10:16 MB [id number]) Orientation Orientation/Cognition Level of Alertness Confusional State Orientation Name,Age,Birthday,Month,Place, Situation Language Function Ability Hard of Hearing Safety Awareness Decreased Safety Awareness Comments Pt appears to have some cognitive challenges with PT today and has trouble following commands and seems surprised about simple functional tasks that PT asks her to perform. Gross Range of Motion Upper Extremity ROM Impairments Defer to OT Lower Extremity ROM Assessment Left Impaired Strength Lower Extremity Strength Assessment Left Impaired Comments Strength Comments MMT LLE deferred and she has weakness all LLE joints Sensation Assessment Comments Sensation Comments Edema LLE M6 PT-IP Treatment Start: 01/05/24 09:25 Freq: NEEDED Status: Active Protocol: Document 01/05/24 09:25 MB (Rec: 01/05/24 10:16 MB [id number]) Physical Therapy Treatment Exercises Exercises Ankle Pumps,Heel Slides Knee ROM Measurement Grossly 5-25 actively left knee post-op Education Education Provided Weight Bearing Status,Post-Op Packet,Safety M7 PT-IP Assessment and Plan Start: 01/05/24 09:25 Freq: NEEDED Status: Active Protocol: Document 01/05/24 09:25 MB (Rec: 01/05/24 10:16 MB [id number]) PT Summary Assessment and Plan Potential Rehabilitation Potential Fair Status of Condition at Evaluation Evolving Summary Impairments Pain,ROM,Strength,Balance, Coordination,Cognition,Bed Mobility,Transfers,Gait, Activity Tolerance Progress Towards Goals Slow Progress due to Pain Assessment Summary Pt is a 78 y/o female presenting with reports of high pain 05/05 and concerns about decreased left knee function post-op. Pt requires encouragement to participate with all mobility tasks and ongoing cueing to stay on task and perform simple functional tasks. She is [place] and this may be a component to command- following challenges but she also has trouble describing past events such as stroke event in 2022 and understanding simple functional activities. High pain, high BP, decreased left knee range and strength and cognitive challenges were present during PT eval this a. m. Asked pt to ask her to come in for some family training this afternoon to see if they can manage together. Goals Bed Mobility Goal Standby Assistance Transfer Goal Standby Assistance,Front Wheeled Walker Gait Goal Standby Assistance,Front Wheel Walker Gait Distance 75 Days to Meet Goals 5 Frequency of Treatment Frequency Of Treatment Twice a Day Treatment Plan Physical Therapy Treatment Plan Bed Mobility Training,Transfer Training,Gait Training, Therapeutic Exercise,Balance Retraining,Post Op Education, Discharge Planning,Hot or Cold Pack,Neuromuscular Re-ed, Coordination Retraining,Manual Therapy Weight Bearing Status Weight Bearing Status Weight Bear as Tolerated Recommendations To Nursing Amount of Assist Needed 2 Person Assist Discharge Recommendations PT Discharge Recommendations Home vs SNF Transportation Needs at Discharge Private Vehicle,Wheelchair/ Cabulance
--- NOTE | 2024-01-05 10:20 | OT.IP.EVAL ---
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 (Rec: 01/05/24 11:40 [facility] [id number]) Medical Review Prior Functional Status Medical History Reviewed Yes Diet/Fluid Consistency Regular Communication Unsure baseline communication, pt appears to have some confusion on evaluation and trouble following simple commands, she has hearing aides. 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 Pt states there are no steps to enter Home Environment High Toilet,Tub/Shower Home Equipment Front Wheel Walker,Straight Cane,Raised Toilet Seat w/ Armrests,Grab Bars In Shower M2 OT-IP Current Condition Start: 01/05/24 11:13 Freq: Status: Active Protocol: Document 01/05/24 11:14 [facility] (Rec: 01/05/24 11:40 [facility] [id number]) Occupational Therapy Current Condition Current Condition Evaluation Date 01/05/24 Treatment Diagnosis S/P L TKA Diagnosis Onset Date 01/04/24 M3 OT- IP Subjective and Pain Start: 01/05/24 11:13 Freq: Status: Active Protocol: Document 01/05/24 11:14 [facility] (Rec: 01/05/24 11:40 [facility] [id number]) OT- Subjective Occupational Therapy Visit Type Type Initial Evaluation Visit Start Time 09:35 Visit Stop Time 10:20 Occupational Therapy Visit Comments Patient Comments Pt agreed to get up and wanting to use the bathroom. Patient/Caregiver Goals To go home. OT Pain Assessment Pain When Pain Assessed During Mobility Pain Present Pain Present Pain Reported Location Left knee Intensity 8 Scale Used Numeric (0 - 10) M4 OT- IP ADL's Start: 01/05/24 11:13 Freq: Status: Active Protocol: Document 01/05/24 11:14 [facility] (Rec: 01/05/24 11:40 [facility] [id number]) OT VGX-Agea-Lkaxtsy General Evaluation Self-Feeding Ability Independent OT ADL-Grooming Comments OT Grooming Comments Pt able to wash her face after set-up. OT ADL-Oral Care Comments Oral Care Comments NOt performed. OT ADL-Dressing General Eval Lower Body Dressing Ability Maximum Assistance Areas Needing Assistance Socks Comments OT Dressing Comments Able to show pt use of supervisor poultry farm and sock aid for LB dressing needs. OT ADL-Toileting General Evaluation Areas Needing Assistance Manage Clothing,Perform Perineal Hygiene Comments OT Toileting Comments At this time due to her pain and decreased mobility will need assist for clothing and hygiene needs. OT ADL-Bathing Comments OT Bathing Comments Pt will benefit from a tub bench or shower chair . Pt may benefit from sponge bathing initially pending on how her well her knee moves. M5 OT- IP IADL's Start: 01/05/24 11:13 Freq: Status: Active Protocol: Document 01/05/24 11:14 [facility] (Rec: 01/05/24 11:40 [facility] [id number]) OT-Instrumental Activities of Daily Living Deficits IADL Deficits Identified Deficits Home Safety Awareness Home Safety Comments Pt is a bit groggy at this time and best to have at least supervision for all needs. Money Management Money Management Caregiver Provides Assistance Meal Preparation Meal Preparation Caregiver Provides Assist Keg Raiser Keg Raiser Caregiver Provides Assist M6 OT- IP Functional Cognition Start: 01/05/24 11:13 Freq: Status: Active Protocol: Document 01/05/24 11:14 [facility] (Rec: 01/05/24 11:40 [facility] [id number]) Cognitive Factors Limiting Selfcare Function Cognitive Ability Level of Alertness Alert,Drowsy Patient Orientation Name,Place,Situation Attention Span Ability Capable of Focused Attention, Capable of Sustained Attention Ability to Follow Commands Able to Follow One Step Commands with Increased Time, Able to Follow One Step Commands with Repetition Cognitive Comments Cognitive Assessment Comments Pt needing step by step commands for safety awareness. Pt a bit groggy and at times having difficulty to follow commands, pt however is hard of hearing and wears hearing aids. OT- Vision and Hearing OT- Hearing Assessment OT- Hearing Assessment Hearing Impaired,Use of Hearing Aids OT- Vision Assessment Visual Acuity Glasses All The Time Visual Attentiveness WFL Occular Pursuits WFL M7 OT- IP Mobility and Balance Start: 01/05/24 11:13 Freq: Status: Active Protocol: Document 01/05/24 11:14 [facility] (Rec: 01/05/24 11:40 [facility] [id number]) OT- Bed Mobility Assessment Supine to Sit Supine to Sit Assist Minimal Assistance OT-Transfer Assessment Sit to and From Stand Sit to and from Stand Moderate Assistance,Maximum Assistance,1 Person Assistance Transfers Transfer Ability Moderate Assistance,1 Person Assistance Technique Transfer Destination Bed,Chair,Toilet Transfer Technique Stand Step Pivot Devices Transfer Assistive Devices Gait Belt,Front Wheeled Walker Comments Mobility Comments TONNY for bed mobility needs and MOD/MAXA to stand with FWW . MODA with FWW and when trying assist to guide the FWW and assist for balance as pt had one episode of buckling. OT- Balance Assessment Sitting Balance and Reactions Static Sitting Balance Ability Good Dynamic Sitting Balance Ability Fair Standing Balance and Reactions Static Standing Balance Ability Fair Dynamic Standing Balance Ability Fair M8 OT- IP Objective Assessments Start: 01/05/24 11:13 Freq: Status: Active Protocol: Document 01/05/24 11:14 [facility] (Rec: 01/05/24 11:40 [facility] [id number]) OT Gross Range of Motion Upper Extremity Range of Motion Assessment Within Functional Limits OT Strength Upper Extremity Strength Assessment Within Functional Limits OT-Muscle Tone Assessment Muscle Tone WNL Yes M9 OT- IP Assessment and Plan Start: 01/05/24 11:13 Freq: Status: Active Protocol: Document 01/05/24 11:14 [facility] (Rec: 01/05/24 11:40 [facility] [id number]) OT Summary Assessment and Plan Potential Rehabilitation Potential Excellent Analytic Complexity at Evaluation Low Summary OT Impairments Pain,Strength,Balance, Functional Mobility,Grooming, Dressing,Toileting,Bathing, Toilet Transfers,Shower Transfers,Activity Tolerance Progress Towards Goals Progressing Toward Goals Assessment Summary Pt low complexity and main barriers are pain, now needing once person assist for all ADL and mobility needs. Pt is a bit groggy and needing cues for safety and having to write down equipment needs for the pt. Pt when medically stable to go home with her to [facility] and attend outpt PT. Goals Self-Feeding Goal Independent Grooming Goal Independent Dressing Goal Independent,Residential Mental Health Worker,Sock Aid Toileting Goal Independent Bathing Goal Standby Assistance Toilet Transfer Goal Standby Assistance Shower Transfer Goal Standby Assistance Patient/Caregiver Education Goal Caregiver Independent Assisting Patient Days to Meet Goals 35 Treatment Plan OT Treatment Plan ADL Training,Functional Mobility,Patient/Family Education,Discharge Planning Other Treatment Recommendations and Next GO over LB dressing needs Treatment Focus Discharge Recommendations OT Discharge Recommendations Home with 18/04 Assist Available,Outpatient PT Home Equipment Needs BSC, tub bench versus shower chair, LB dressing equipment, toilet paper aid Transportation Needs at Discharge Private Vehicle
--- NOTE | 2024-01-05 13:20 | PT.IPTN ---
Current Diagnoses Unilateral primary osteoarthritis, left knee (01/04/24) Surgery Performed Operation Date: 01/04/24 10:45 Actual Procedures p Total Knee Arthroplasty - Robot(Left) - Mignon Mina MD Physical Therapy Treatment Note M2 PT-IP Current Condition Start: 01/05/24 09:25 Freq: NEEDED Status: Active Protocol: Document 01/05/24 09:25 MB (Rec: 01/05/24 10:16 MB [id number]) Physical Therapy Current Condition Current Condition Evaluation Date 01/05/24 Treatment Diagnosis L TKR M3 PT-IP Subjective Start: 01/05/24 09:25 Freq: NEEDED Status: Active Protocol: Document 01/05/24 14:04 TS (Rec: 01/05/24 14:23 TS [id number]) Subjective Physical Therapy Visit Type Type Treatment Note Visit Start Time 13:20 Visit Stop Time 13:58 Notes Spouse present for caregiver training. Number of SCHOOL COORDINATOR Visits 1 Physical Therapy Visit Comments Patient Comments Pt found resting in chair, is agreeable to PT. Therapy Pain Assessment Pain When Pain Assessed During Mobility Pain Present Pain Present Pain Reported M4 PT-IP Mobility and Gait Start: 01/05/24 09:25 Freq: NEEDED Status: Active Protocol: Document 01/05/24 14:04 TS (Rec: 01/05/24 14:23 TS [id number]) PT-Bed Mobility Assessment Supine to Sit Supine to Sit Minimal Assistance,1 Person Assistance,Head of Bed Elevated,Bedrails Sit to Supine Sit to Supine Minimal Assistance Scooting Scooting to Edge of Bed Contact Guard Assistance PT-Transfer Assessment Sit to and From Stand Sit to and from Stand Minimal Assistance,1 Person Assistance Equipment Transfer Assistive Device Gait Belt,Front Wheeled Walker Orthotic/Prosthetic Devices or Brace: No Comments Mobility Comments spouse donned gait belt prior to mobility. STS from chair Liam with cues for STS technique. She ambulated in room ~40'CGA with slow step to gait and TTWB at times, cued for foot flat. She sat on EOB, sit to supie Liam for LE's from spouse. Supine to sit Liam for LE's out of bed from spouse. STS from bed Liam with FWW. She ambulated to restroom, performed own pericare. STS from toilet SBA with use of FWW and grab bar. Pt ambulated back to bed ~10' SBA with FWW. Sit to supine into bed Liam for LE's. Pt was left in bed, all needs met. Gait Assessment Gait Gait Assistance Required: Standby Assistance,Contact Guard Assist Distance (Feet) 50 Able to Maintain Weight Bearing Status Yes During Gait Assistive Devices Assistive Device Gait Belt,Front Wheeled Walker Orthotic/Prosthetic Devices or Brace: No Gait Deviations General Gait Pattern Antalgic,Decreased Stride Length,Decreased Feet Clearance,Flexed Trunk,Step-to Gait,Wide Based Gait Factors Limiting Gait Function Factors Limiting Gait Function Decreased Activity Tolerance, Decreased Strength,Pain,Poor Balance,Poor Safety Awareness Comments Gait Comments See mobility comments PT-Balance Assessment Sitting Balance and Reactions Static Sitting Balance Ability Good Dynamic Sitting Balance Ability Fair Standing Balance and Reactions Static Standing Balance Ability Fair Dynamic Standing Balance Ability Fair Device Used RW M5 PT-IP Objective Assessments Start: 01/05/24 09:25 Freq: NEEDED Status: Active Protocol: Document 01/05/24 09:25 MB (Rec: 01/05/24 10:16 MB [id number]) Orientation Orientation/Cognition Level of Alertness Confusional State Orientation Name,Age,Birthday,Month,Place, Situation Language Function Ability Hard of Hearing Safety Awareness Decreased Safety Awareness Comments Pt appears to have some cognitive challenges with PT today and has trouble following commands and seems surprised about simple functional tasks that PT asks her to perform. Gross Range of Motion Upper Extremity ROM Impairments Defer to OT Lower Extremity ROM Assessment Left Impaired Strength Lower Extremity Strength Assessment Left Impaired Comments Strength Comments MMT LLE deferred and she has weakness all LLE joints Sensation Assessment Comments Sensation Comments Edema LLE M6 PT-IP Treatment Start: 01/05/24 09:25 Freq: NEEDED Status: Active Protocol: Document 01/05/24 14:04 TS (Rec: 01/05/24 14:23 TS [id number]) Physical Therapy Treatment Education Education Provided Weight Bearing Status,Post-Op Packet,Safety M7 PT-IP Assessment and Plan Start: 01/05/24 09:25 Freq: NEEDED Status: Active Protocol: Document 01/05/24 14:04 TS (Rec: 01/05/24 14:23 TS [id number]) PT Summary Assessment and Plan Potential Rehabilitation Potential Fair Summary Impairments Pain,ROM,Strength,Balance, Coordination,Cognition,Bed Mobility,Transfers,Gait, Activity Tolerance Progress Towards Goals Progressing Toward Goals Assessment Summary Gricel is making progress with her mobility this session. She is Liam for STS x2 and SBA x1 . She progressed her gait to ~ 50'CGA/SBA with FWW. She has some difficulty with wbering on LLE. Spouse was instructed in and performed donning of gait belt, STS technique, gait training and bed mobility. PT is recommending 24/7 assist and outpatient PT. Goals Bed Mobility Goal Standby Assistance Transfer Goal Standby Assistance,Front Wheeled Walker Gait Goal Standby Assistance,Front Wheel Walker Gait Distance 75 Days to Meet Goals 5 Frequency of Treatment Frequency Of Treatment Twice a Day Treatment Plan Physical Therapy Treatment Plan Bed Mobility Training,Transfer Training,Gait Training, Therapeutic Exercise,Balance Retraining,Post Op Education, Discharge Planning,Hot or Cold Pack,Neuromuscular Re-ed, Coordination Retraining,Manual Therapy Weight Bearing Status Weight Bearing Status Weight Bear as Tolerated Recommendations To Nursing Amount of Assist Needed 1 Person Assist Discharge Recommendations PT Discharge Recommendations Home with 24/7 Assist Available,Outpatient PT Transportation Needs at Discharge Private Vehicle
--- NOTE | 2024-01-05 13:37 | CM.DANOTE ---
Initial DCP Assessment Visit Note Reviewed EMR and team rounds for status updates. Met with pt at bedside to introduce self and role, pt was found to be alert/oriented, sitting upright in her recliner appearing comfortable and in no apparent distress. She did state that this surgery was unexpectedly more difficult for her than she had anticipated. Pt resides modified independently in her own home in [place] with her spouse. Her spouse will transport her home once she has been medically cleared for d/c. Payor: Medicare Attending: Dr. Mina Pt is a 78 year-old F placed in [facility] bed following her total L-hip arthroplasty completed yesterday. Pt has a hx of stroke and previous R-knee arthroplasty. She states that she has all of the recommended DME at home for post-op recovery needs, and already has her OP PT visits scheduled. She declines any needs for in-home care or support resources at this time. This STRATEGIC DEBRIEFING OFFICER will continue to follow and assist with any further d/c needs that may arise. Discharge Planning/Care Management CM Discharge Assessment Start: 01/05/24 13:35 Freq: Status: Active Protocol: Document 01/05/24 13:35 DPL (Rec: 01/05/24 13:37 D[facility] [id number]) Discharge Planning Assessment Assigned Machine Milker SERGIO Dennis Advance Directives? Yes Advance Directives on File No History Provided By Patient,Medical Record Has Patient been admitted in last 30 No days? Prior Living Arrangements Apartment/Condo Household Members spouse Type of transporation used prior to Relies on Others admit Independent with ADL's No: modified independent Is patient alert and oriented? Yes Caregiver for Another No DME Already Rented / Owned Bath Bench,Wheelchair,Elevated Toilet Seat,FWW / Walker Patient/Family Preference OP PT Therapy Barriers to Discharge No Discharge Plan Home Community Services Physical Therapy Transportation Arrangement Spouse Referrals Initiated None needed Whiteboard Updated in Patient Room with Yes name and ext. # of Machine Milker Review Status In Process Please Provide Date Initial DC 01/05/24 Assessment Was Performed Pre-Anesthesia Assessment Start: 12/21/23 13:47 Freq: Status: Complete Protocol: Document 12/21/23 13:47 CAB (Rec: 12/21/23 14:10 CAB [id number]) Pre-Anesthesia Assessment Patient Information Reviewed Via Phone Assessment Assessment Completed With Patient Primary Care Provider Lashon L Jose Comment Clearance form 01/18/23 scanned to chart Medical Clearance Received Yes Seen Specialist in Last 12 Months Yes Specialist Seen Orthopedist Primary Language [place] Citizen Preferred Language [place] Citizen Book Publisher Required No Height 167.64 cm Weight 99.79 kg Body Mass Index (BMI) 35.5 Hearing Ability Hearing Impaired,Use of Hearing Aid Visual Assist Glasses Dentition Type Teeth, Natural Present Barriers to Learning None Comment Pt denies any difficulty Hx Anesthesia Reactions No Hx Family Anesthesia Reaction No Hx Malignant Hyperthermia No Hx Blood Transfusions No Anesthesia Review Requested No Counter Hand No alcohol intake current alcohol intake frequency a few times a week Smoking Status Never smoker Substance Use Type does not use Pain Present Pain Reported Musculoskeletal Symptoms Abnormal Gait,Difficulty Walking,Joint Pain History of Falling (Recent or History of No ) Patient is completely paralyzed or No completely immobile Mental Status Oriented to own ability Is patient on oxygen? No Does patient have LE/SOB No Hx Sleep Apnea No Currently Taking a Beta Debra No Hx Chest Pain No Hx SOB No Hx Syncope or Dizziness No Anti-Coagulant Therapy Yes: ASA hx stroke-advised to hold day before per surgeon office Has a Recycling Specialist No Cardiac Testing No Hx Pacemaker/ICD No Pacemaker Rep Required? No Cardiac Clearance Received Not Applicable Diet Type At Home Regular Dysphagia No Urinary Catheter Present No Hx Urinary Self Catheterization No Diabetes No Patient No Lactating No Hx Drug Resistant Organism No Presence of External or Internal Medical Yes: b/l hips, right knee Devices Received a COVID vaccine? Yes Received all doses? Yes Marital Status Lives With spouse Current Living Arrangements Apartment/Condo Support System Spouse Does the Patient Have Assistance After Yes Surgery Patient Discharge Plan Description Return Home Comment Pt wants to stay overnight Feels Safe in Current Environment Yes Been Physically Hurt or Threatened By a No Person in Current Environment Do you have thoughts of harming yourself None or others? Are you currently considering suicide? No Do you have a plan to hurt yourself or No Plan others? Do You Have Any Spiritual Beliefs That No May Affect Your HC Choices? Do You Have Any Cultural Practices That No May Affect Your HC Choices? Comment Taylor Who Can We Speak to About Patient's Care Family, friends Identifying Code for Release of Patient Declines to issue Information Health Care Proxy/Next of Kin Srinath () Health Care Proxy Emergency Contact Name Srinath () Emergency Contact Advance Directives? Yes Advance Directives on File No Requested Patient Bring Advanced Yes Directives DOS Power of Certified Adapted Physical Educator No PAC Instructions Assistance for 24 hours post- op,Bring CPAP/BIPAP,Do not shave/clip surgical site, Durable medical equipment, Medications to take/avoid, Nasal antibiotic,No ETOH/ petroleum product on skin DOS, NPO,Post-op transportation,Pre -surgical wash,Sensory aids, Sturdy shoes/comfortable clothes,Do not bring valuables and remove jewelry
--- NOTE | 2024-01-05 15:17 | PC.NURSE ---
Pt med x 2 for discomfort. w/ good relief. Aquacel & Edward wrap CDI SL D/C'd intact Orders for D/C placed. Home instructions given w/understanding D/C in stable post op status.
== END 2024-01-05 15:45 | disposition home or self-care (01) ==
LOC: OR 09:29 → AC 09:30
PROVIDERS: PCP Student in an Organized Health Care Education/Training Program; Referring Provider Orthopaedic Surgery Foot and Ankle Surgery; Visit Provider Orthopaedic Surgery Foot and Ankle Surgery
PROC: 0SRD0JZ Replacement of Left Knee Joint with Synthetic Substitute, Open Approach (ICD-10-PCS; CPT 27447; principal; 2024-01-04 10:45)
DX: M17.12 Unilateral primary osteoarthritis, left knee (principal); M25.762 Osteophyte, left knee; M21.162 Varus deformity, not elsewhere classified, left knee
CPT/HCPCS: 27447; 20985; 64450; 73560; 85014; 85018; 97110; 97116; 97161; 97165; 97530; 97535; C1776; A9270; C9290; J0171; J0690; J2405; J2704; J3010